=== PATIENT | female | born 1980 | race Caucasian/White ===

== ENCOUNTER 2017-08-09 01:03 | Emergency (ER) | payer BC ==
--- NOTE | 2017-08-09 01:45 | Emergency Department Record ---
History of Present Illness - General Chief complaint: Extremity Problem Stated complaint: RIGHT LEG PAIN Time Seen by Provider: 08/09/17 01:12 Source: Patient, EMS Mode of Arrival: Ambulatory Limitations: No limitations - History of Present Illness Initial comments: pt having severe back pain that radiates down r leg. no problems w bowel or bladder. pt had injections in back earlier this week. pt has mild numbness only when only when she stands on it. pt vomited 3x tonight and that made it worse. MD Complaint: Extremity pain, Other Onset/Timin -: Week(s) Location: Right, Lower Leg Severity scale (1-10): 10 Quality: Sharp, Stabbing Consistency: Constant, Getting worse - Related Data Previous Rx's Medication Instructions Recorded Diazepam [Valium] 2 mg PO TID #10 tab 08/09/17 Hydrocodone/Acetaminophen [Kinsley 1 each PO QID #7 tablet 08/09/17 5-325 Tablet] Ibuprofen [Motrin 600Mg] 600 mg PO Q6H #20 tablet 08/09/17 Allergies Allergy/AdvReac Type Severity Reaction Status Date / Time No Known Drug Allergies Allergy Unknown Verified 07/06/17 13:39 [NO KNOWN DRUG ALLERGIES] Travel Screening - Travel/Exposure Within Last 30 Days Have you traveled within the last 30 days?: No Review of Systems Reviewed: No additional complaints except as noted below Constitutional: Reports: As per HPI. Denies: Chills, Fever, Malaise, Night sweats, Weakness, Weight change Eyes: Reports: As per HPI. Denies: Eye discharge, Eye pain, Photophobia, Vision change ENT: Reports: As per HPI. Denies: Congestion, Dental pain, Ear pain, Epistaxis , Hearing loss, Throat pain Respiratory: Reports: As per HPI. Denies: Cough, Dyspnea, Hemoptysis, Stridor, Wheezes Cardiovascular: Reports: As per HPI. Denies: Arrhythmia, Chest pain, Dyspnea on exertion, Edema, Murmurs, Orthopnea, Palpitations, Paroxysmal nocturnal dyspnea, Rheumatic Fever, Syncope Endocrine: Reports: As per HPI. Denies: Fatigue, Heat or cold intolerance, Polydipsia, Polyuria Gastrointestinal: Reports: As per HPI. Denies: Abdominal pain, Constipation, Diarrhea, Hematemesis, Hematochezia, Melena, Nausea, Vomiting Genitourinary: Reports: As per HPI. Denies: Abnormal menses, Discharge, Dyspareunia, Dysuria, Frequency, Hematuria, Incontinence, Retention, Urgency Musculoskeletal: Reports: As per HPI. Denies: Arthralgia, Back pain, Gout, Joint swelling, Myalgia, Neck pain Skin: Reports: As per HPI. Denies: Bruising, Change in color, Change in hair/ nails, Lesions, Pruritus, Rash Neurological: Reports: As per HPI. Denies: Abnormal gait, Confusion, Headache, Numbness, Paresthesias, Seizure, Tingling, Tremors, Vertigo, Weakness Psychiatric: Reports: As per HPI. Denies: Anxiety, Auditory hallucinations, Depression, Homicidal thoughts, Suicidal thoughts, Visual hallucinations Hematological/Lymphatic: Reports: As per HPI. Denies: Anemia, Blood Clots, Easy bleeding, Easy bruising, Swollen glands Past Medical History - SOCIAL HISTORY Smoking Status: Never smoker Alcohol Use: None Drug Use: None - RESPIRATORY Hx Respiratory Disorders: No - CARDIOVASCULAR Hx Cardio Disorders: No Hx Chest Pain: No - NEURO Hx Neuro Disorders: No - GI Hx GI Disorders: No - Hx Genitourinary Disorders: No - ENDOCRINE Hx Endocrine Disorders: No - MUSCULOSKELETAL Hx Musculoskeletal Disorders: No Hx Back Injury: Yes - PSYCH Hx Psych Problems: Yes Hx Anxiety: Yes - HEMATOLOGY/ONCOLOGY Hx Hematology/Oncology Disorders: No Family Medical History Any Significant Family History?: Yes Hx Heart Disease: Father, Grandparents Hx HTN: Grandparents Physical Exam - General General Appearance: Alert, Oriented x3, Cooperative, Mild distress - Head Head exam: Normal inspection - Eye Eye exam: Normal appearance, PERRL, EOMI Pupils: Normal accommodation - ENT ENT exam: Normal exam, Mucous membranes moist, Normal external ear exam, Normal orophraynx Ear exam: Normal external inspection. negative: External canal tenderness Nasal Exam: Normal inspection. negative: Discharge, Sinus tenderness Mouth exam: Normal external inspection, Tongue normal Teeth exam: Normal inspection. negative: Dental caries Throat exam: Normal inspection. negative: Tonsillar erythema, Tonsillar exudate - Neck Neck exam: Normal inspection, Full ROM. negative: Tenderness - Respiratory Respiratory exam: Normal lung sounds bilaterally. negative: Respiratory distress - Cardiovascular Cardiovascular Exam: Regular rate, Normal rhythm, Normal heart sounds - GI/Abdominal GI/Abdominal exam: Soft, Normal bowel sounds. negative: Tenderness - Rectal Rectal exam: Deferred - exam: Deferred - Extremities Extremities exam: Normal inspection, Full ROM, Normal capillary refill. negative: Tenderness - Back Back exam: Reports: Muscle spasm, Paraspinal tenderness, Tenderness. Denies: Normal inspection, Full ROM, Rash noted - Neurological Neurological exam: Alert, CN II-XII intact, Normal gait, Oriented X3 - Psychiatric Psychiatric exam: Normal affect, Normal mood - Skin Skin exam: Dry, Intact, Normal color, Warm Course Vital Signs 08/09/17 01:04 Temperature 98.3 F Pulse Rate 62 Respiratory 16 Rate Blood Pressure 125/72 Pulse Ox 97 Disposition Disposition: Discharge Clinical Impression: Sciatica Qualifiers: Laterality: right Qualified Code(s): M54.31 - Sciatica, right side Disposition: Home, Self-Care Condition: (1) Good Instructions: Sciatica (ED) Additional Instructions: follow up with family doctor. return sooner if worse. no lifting more then 5 lbs for 5 days. ice to back Prescriptions: Diazepam [Valium] 2 mg PO TID #10 tab Hydrocodone/Acetaminophen [Kinsley 5-325 Tablet] 1 each PO QID #7 tablet Ibuprofen [Motrin 600Mg] 600 mg PO Q6H #20 tablet Forms: Patient Portal Access Quality - Quality Measures Quality Measures: N/A - Blood Pressure Screening Does Patient Have Any of the Following: No Blood Pressure Classification: Pre-Hypertensive BP Reading Systolic Measurement: 125 Diastolic Measurement: 72 Screening for High Blood Pressure: < Pre-Hypertensive BP, F/U Documented > [ G8950] Pre-Hypertensive Follow-up Interventions: Follow-up with rescreen every year.
[2017-08-09] MEDS ORDERED: PROMETHAZINE HCL 25 MG/ML VIAL IM ONE (01:55)
[2017-08-09] MEDS ORDERED: ORPHENADRINE CITRATE 60MG/2ML VIAL IM ONE (01:55)
[2017-08-09] MEDS ORDERED: HYDROMORPHONE HCL 1 MG/ML SYRINGE IM ONE (01:55)
[2017-08-09] MEDS ORDERED: KETOROLAC 30 MG/ML VIAL IM ONE (03:26)
--- NOTE | 2017-08-09 08:59 | CT SCAN REPORT ---
EXAM: CT SCAN LUMBAR SPINE WO CONTRAST HISTORY: SEVERE LOW BACK PAIN WITH RADIATION DOWN THE RIGHT LEG. STATUS POST LUMBAR INJECTION. TECHNIQUE: Standard CT imaging of the lumbar spine was performed in the axial plane without contrast. Additional coronal and sagittal reformatted images were also performed. COMPARISON: Lumbar spine x-rays dated July 06, 2017. ENCOUNTER: Not applicable. FINDINGS: There are six [id number] lumbar vertebral segments. There is mild disc space narrowing at the L6-S1 level. The remaining lumbar intervertebral disc spaces and vertebral body heights are maintained. Facet arthropathy is present at the L6-S1 level. There is diffuse disc bulging and a superimposed right paracentral to right posterolateral disc protrusion at the L6 -S1 level. There is probable impingement on the descending nerve root. There is no gross central canal stenosis. There is very minor disc bulging at L4-5 and L5 -6 levels with no disc herniation, central canal stenosis, or nerve root impingement. The remaining lumbar intervertebral discs are unremarkable. There are no acute osseous abnormalities. IMPRESSION: 1. SIX LUMBAR VERTEBRAL SEGMENTS. 2. DEGENERATIVE DISC DISEASE AND FACET ARTHROPATHY AT THE L6-S1 LEVEL. A SUPERIMPOSED RIGHT PARACENTRAL TO RIGHT POSTEROLATERAL DISC PROTRUSION IS PRESENT AND LIKELY IMPINGES UPON THE DESCENDING RIGHT S1 NERVE ROOT. JOB NUMBER: [id number] [facility]
== END 2017-08-09 07:21 | disposition home or self-care (01) ==
LOC: ER 01:03
DX: M51.17 Intervertebral disc disorders with radiculopathy, lumbosacral region (principal); M54.5 Low back pain; R11.11 Vomiting without nausea
CPT/HCPCS: 99283; 96372; 99284; 72131; J1885; J1170; J2360; J2550

== ENCOUNTER 2017-11-17 09:29 | Observation (INO) | payer BC ==
[2017-11-17] MEDS ORDERED: 0.9 % SODIUM CHLORIDE 1,000 ML BAG IV ONE ×2 (10:03→10:54)
[2017-11-17] MEDS ORDERED: LORAZEPAM 2 MG/ML VIAL IV ONE ×2 (10:03→10:58)
--- NOTE | 2017-11-17 10:07 | Emergency Department Record ---
Anxiety - General Chief Complaint: Anxiety Stated Complaint: ANXIETY Time Seen by Provider: 11/17/17 09:48 Source: Patient Mode of Arrival: Ambulatory Limitations: No limitations - History of Present Illness Initial Comments: The patient is here due to a 4 hour hx of dizziness, weakness, feeling shaky and lightheaded. The onset was after waking up this AM. She also is feeling very anxious and having mild R anterior pleuritic pain at times. She is very concerned that she may have a blood clot due to having out patient back surgery 2 weeks ago. There is no reported hx of leg pain, swelling, blood clots or immobility. MD Complaint: Anxiety, Shortness of breath Onset/Timin -: Hour(s) Place: Home Previous History of Same: Yes Severity: Mild Provoking factors: Other Improves With: Nothing Worsens With: Other Associated symptoms: Denies other symptoms - Related Data Home Medications: Home Medications Medication Instructions Recorded Confirmed Last Taken Ibuprofen [Motrin 600Mg] 800 mg PO Q6H 11/17/17 11/17/17 1 Day Ago ~11/16/17 Tramadol HCl [Tramadol HCl] 50 mg PO Q6HR PRN 11/17/17 11/17/17 11/16/17 Allergies/Adverse Reactions: Allergies Allergy/AdvReac Type Severity Reaction Status Date / Time No Known Drug Allergies Allergy Unknown Verified 11/17/17 09:35 [NO KNOWN DRUG ALLERGIES] Travel Screening - Travel/Exposure Within Last 30 Days Have you traveled within the last 30 days?: No - Travel/Exposure Within Last Year Have you traveled outside the [place] in the last year?: No - Additonal Travel Details Have you been exposed to anyone with a communicable illness?: No - Travel Symptoms Symptom Screening: None Review of Systems Constitutional: Denies: Chills, Fever Eyes: Denies: Eye discharge ENT: Denies: Congestion Respiratory: Denies: Cough, Dyspnea Past Medical History - SOCIAL HISTORY Smoking Status: Never smoker Alcohol Use: Occasional Drug Use: None - RESPIRATORY Hx Respiratory Disorders: No - CARDIOVASCULAR Hx Cardio Disorders: Yes Hx Chest Pain: No - NEURO Hx Neuro Disorders: No - GI Hx GI Disorders: No - Hx Genitourinary Disorders: No - ENDOCRINE Hx Endocrine Disorders: No - MUSCULOSKELETAL Hx Musculoskeletal Disorders: Yes Hx Back Injury: Yes - PSYCH Hx Psych Problems: Yes Hx Anxiety: Yes - HEMATOLOGY/ONCOLOGY Hx Hematology/Oncology Disorders: No Family Medical History Any Significant Family History?: No Hx Heart Disease: Father, Grandparents Hx HTN: Grandparents Physical Exam - General General Appearance: Alert, Oriented x3, Cooperative, No acute distress - Head Head exam: Atraumatic, Normocephalic, Normal inspection - Eye Eye exam: Normal appearance, PERRL - ENT Throat exam: Normal inspection. negative: Tonsillar erythema, Tonsillar exudate - Neck Neck exam: Normal inspection, Full ROM. negative: Tenderness - Respiratory Respiratory exam: Normal lung sounds bilaterally. negative: Respiratory distress - Cardiovascular Cardiovascular Exam: Regular rate, Normal rhythm, Normal heart sounds. negative : Diastolic murmur, Systolic murmur - GI/Abdominal GI/Abdominal exam: Soft, Normal bowel sounds. negative: Tenderness - Extremities Extremities exam: Normal inspection, Full ROM, Normal capillary refill. negative: Tenderness - Neurological Neurological exam: Alert, Normal gait. negative: Abnormal gait, Motor sensory deficit - Psychiatric Psychiatric exam: Anxious Course Vital Signs 11/17/17 09:38 Temperature 97.5 F L Pulse Rate 107 H Respiratory 20 Rate Blood Pressure 137/77 Pulse Ox 100 - Reevaluation(s) Reevaluation #1: The patient is doing a lot better at this time. She is resting comfortably and no longer is anxious and no longer having any pain or discomfort. Due to her D- dimer being mildly elevated we will be ordering a chest CT. 11/17/17 10:54 11/17/17 10:59 Reevaluation #2: The patient is doing a lot better with her anxiety and denies any Cp or SOB. I did discuss this with her and she clearly appears more comfortable. Presently she is resting comfortably but is now having persistent sinus tachycardia. We have been observing her here for over an hour and her HR is bouncing from 130- 140. Due to that fact I did recommend admitting her overnight with a Cardiology consult tomorrow. The patient does understand the plan and does agree to it. I then did discuss the case with Antonia POWELL) and she does accept the patient for admission for Dr. Velázquez. 11/17/17 13:06 Medical Decision Making - Data Complexity MDM Data: Labs Ordered and/or Reviewed, X-Ray Ordered and/or Reviewed, EKG Ordered and/or Reviewed - Lab Data Result diagrams: 11/17/17 10:10 11/17/17 10:10 - EKG Data -: EKG Interpreted by Me EKG: No Acute Changes, Unchanged From Previous - Radiology Data Radiology results: Report reviewed (CXR: Neg Chest CT: Neg for any PE or acute abnormalities.) Disposition Disposition: Admit Clinical Impression: Tachycardia Disposition: Still a Patient at [facility] Decision to Admit: Admit from ER Decision to Admit Date: 11/17/17 Decision to Admit Time: 13:10 Accepting Physician: Eber Time Discussed w/Accepting Physician: 13:10 Condition: (2) Stable Time of Disposition: 13:10 Quality - Quality Measures Quality Measures: N/A - Blood Pressure Screening View Details: Yes Does Patient Have Any of the Following: No Blood Pressure Classification: Pre-Hypertensive BP Reading Systolic Measurement: 127 Diastolic Measurement: 72 Screening for High Blood Pressure: < Pre-Hypertensive BP, F/U Documented > [ G8950] Pre-Hypertensive Follow-up Interventions: Referral to alternative/primary care provider.
[2017-11-17 10:20] LABS: HEMATOCRIT 39.1 % (35.0-47.0); HEMOGLOBIN 12.4 gm/dl (11.6-16.0); MEAN CELL VOLUME 98.2 fl (81-97); MEAN CORPUSCULAR HEMOGLOBIN 31.2 pg (27-33); MEAN CORPUSCULAR HGB CONC 31.7 g/dl (32-36); MEAN PLATELET VOLUME 10.3 fl (7.4-10.4); PLATELET COUNT 346 K/uL (130-400); RED BLOOD COUNT 3.98 M/uL (3.80-5.40); WHITE BLOOD COUNT W/O DIFF 16.3 K/uL (4.2-12.2)
[2017-11-17 10:30] LABS: BLOOD UREA NITROGEN 8 mg/dL (6-20); CREATININE 0.7 mg/dL (0.5-0.9); EST GLOMERULAR FILTRATION RATE > 60 mL/min
[2017-11-17 10:33] LABS: GLUCOSE,RANDOM 99 mg/dL (74-109)
[2017-11-17 10:35] LABS: PARTIAL THROMBOPLASTIN TIME 25.9 SECONDS (24.5-39.1); PROTHROMBIN TIME (PATIENT) 10.3 SECONDS (9.5-12.1)
[2017-11-17 10:36] LABS: CREATINE PHOSPHOKINASE 57 U/L (26-192)
[2017-11-17 10:37] LABS: CKMB < 1.0 ng/mL (<3.77)
[2017-11-17] MEDS ORDERED: POTASSIUM CHLORIDE 20 MEQ TABLET PO ONE (10:38)
[2017-11-17] MEDS ORDERED: LORAZEPAM 0.5 MG TABLET PO ONE (13:19)
[2017-11-17] MEDS ORDERED: LEVONORGESTREL IY SCH (14:29)
[2017-11-17] MEDS ORDERED: LORAZEPAM 0.5 MG TABLET PO PRN (14:29)
[2017-11-17] MEDS ORDERED: TRAMADOL HCL 50 MG TABLET PO PRN (14:29)
[2017-11-17] MEDS ORDERED: 0.9 % SODIUM CHLORIDE 1000ML 1,000 ML IV PRN (14:29)
[2017-11-17] MEDS ORDERED: IBUPROFEN 600 MG TABLET PO SCH (14:29)
[2017-11-17] MEDS ORDERED: ACETAMINOPHEN 325 MG TAB PO PRN (14:29)
[2017-11-17] MEDS ORDERED: IBUPROFEN 400 MG TABLET PO PRN (16:00)
--- NOTE | 2017-11-17 22:46 | History & Physical ---
History of Present Illness - Date of Service Date of Service for History & Physical: 11/17/17 - History of Present Illness Admitting Diagnosis: 1. Acute Sinus Tachycardia History of Present Illness: Pt. is a 37 year-old female. She presented to the ED today because she was experiencing a 4 hour hx of dizziness, weakness, feeling shaky and lightheaded. The onset was after waking up this AM. She also reported feeling very anxious and having mild right anterior chest pain at times. She was very concerned that she may have a blood clot due to having outpatient back surgery 2 weeks ago (discectomy at ). She denied hx of leg pain, swelling, blood clots or immobility. Her history includes anxiety with panic attacks, never pharmacologically managed. History also includes multiple ED visits in last 3- 4 years for similar symptoms. In the ED, her vital signs were as follows: BP 137/77, pulse 107 ,temp 97.5F , RR 20, pulse ox 100%. EKG was showed sinus tachycardia, no acute ST changes. Chest xray was negative, d dimer was slightly elevated so CT was done and was negative for any acute process. Labs revealed an elevated WBC of 16.3 and TSH of 5.3, otherwise unremarkable. 1mg of Ativan was administered and did provide relief of her symptoms, however, her heart rate remained 130-140s. Due to her sinus tachycardia, she was admitted for observation with planned cardiology consult on 11/18. 11/17/17 1600 Pt. is resting comfortably in bed. She presently denies symptoms of shortness of breath, dizziness, weakness, and lightheadedness. She denies recent illness. She does admit that she has not been drinking her normal amount of fluids lately. Discussed slightly elevated TSH with pt. and she denies any thyroid history, but states she has struggled with weight loss and cold intolerance. She states that she has recovered well from her lumbar discectomy and she is planning to return to work in 6 days part-time. She is tolerating food and liquids. 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 Will continue ativan PO for anxiety. Travel Screening - Travel/Exposure Within Last 30 Days Have you traveled within the last 30 days?: No - Travel/Exposure Within Last Year Have you traveled outside the [place] in the last year?: No - Additonal Travel Details Have you been exposed to anyone with a communicable illness?: No - Travel Symptoms Symptom Screening: None Review of Systems Constitutional: Reports: Weakness. Denies: Chills, Fever Eyes: Denies: Eye discharge ENT: Denies: Congestion Respiratory: Denies: Cough, Dyspnea Cardiovascular: Reports: Chest pain Endocrine: Reports: Heat or cold intolerance Gastrointestinal: Reports: As per HPI. Denies: Abdominal pain, Constipation, Diarrhea, Hematemesis, Hematochezia, Melena, Nausea, Vomiting Genitourinary: Reports: As per HPI. Denies: Abnormal menses, Discharge, Dyspareunia, Dysuria, Frequency, Hematuria, Incontinence, Retention, Urgency Musculoskeletal: Reports: As per HPI. Denies: Arthralgia, Back pain, Gout, Joint swelling, Myalgia, Neck pain Skin: Reports: As per HPI. Denies: Bruising, Change in color, Change in hair/ nails, Lesions, Pruritus, Rash Neurological: Reports: As per HPI, Weakness. Denies: Abnormal gait, Confusion, Headache, Numbness, Paresthesias, Seizure, Tingling, Tremors, Vertigo Psychiatric: Reports: Anxiety Hematological/Lymphatic: Reports: As per HPI. Denies: Anemia, Blood Clots, Easy bleeding, Easy bruising, Swollen glands Past Medical History - SOCIAL HISTORY Smoking Status: Never smoker Alcohol Use: Occasional Drug Use: None - RESPIRATORY Hx Respiratory Disorders: No - CARDIOVASCULAR Hx Cardio Disorders: Yes Hx Chest Pain: No - NEURO Hx Neuro Disorders: No - GI Hx GI Disorders: No - Hx Genitourinary Disorders: No - ENDOCRINE Hx Endocrine Disorders: No - MUSCULOSKELETAL Hx Musculoskeletal Disorders: Yes Hx Back Injury: Yes - PSYCH Hx Psych Problems: Yes Hx Anxiety: Yes - HEMATOLOGY/ONCOLOGY Hx Hematology/Oncology Disorders: No Family Medical History Any Significant Family History?: No Hx Heart Disease: Father, Grandparents Hx HTN: Grandparents H&P Meds/Allergies - Allergies Allergies: Allergies Allergy/AdvReac Type Severity Reaction Status Date / Time No Known Drug Allergies Allergy Unknown Verified 11/17/17 09:35 [NO KNOWN DRUG ALLERGIES] - Home Medications Home Medications Medication Instructions Recorded Confirmed Last Taken Ibuprofen [Motrin 600Mg] 800 mg PO Q6H 11/17/17 11/17/17 1 Day Ago ~11/16/17 Tramadol HCl [Tramadol HCl] 50 mg PO Q6HR PRN 11/17/17 11/17/17 11/16/17 - Active Medications Active Medications: Current Medications Acetaminophen (Tylenol 325mg) 650 mg PO Q4H PRN PRN Reason: PAIN/TEMP Ibuprofen (Motrin 400mg) 800 mg PO Q8H PRN PRN Reason: Pain - General Lorazepam (Ativan) 0.5 mg PO TID PRN PRN Reason: ANXIETY Tramadol HCl (Ultram) 50 mg PO Q6HR PRN PRN Reason: Pain - General Physical Exam - Vital Signs Vital Signs: Vital Signs - Last 24 Hrs Temp Pulse Pulse Resp BP BP Pulse Ox 11/17/17 20:29 97.6 F 100 H 18 123/71 97 11/17/17 16:29 100.0 F H 112 H 20 115/70 96 11/17/17 14:29 99.2 F 122 H 18 121/71 100 11/17/17 14:25 118 H 16 127/72 99 11/17/17 14:20 16 - General General Appearance: Alert, Oriented x3, Cooperative, No acute distress Limitations: No limitations - Head Head exam: Atraumatic, Normocephalic, Normal inspection - Eye Eye exam: Normal appearance, PERRL - ENT Throat exam: Normal inspection. negative: Tonsillar erythema, Tonsillar exudate - Neck Neck exam: Normal inspection, Full ROM. negative: Tenderness - Respiratory Respiratory exam: Normal lung sounds bilaterally. negative: Respiratory distress - Cardiovascular Cardiovascular Exam: Normal rhythm, Normal heart sounds, Tachycardia. negative : Diastolic murmur, Systolic murmur - GI/Abdominal GI/Abdominal exam: Soft, Normal bowel sounds. negative: Tenderness - Rectal Rectal exam: Deferred - exam: Deferred - Extremities Extremities exam: Normal inspection, Full ROM, Normal capillary refill. negative: Tenderness - Back Back exam: Reports: Normal inspection, Full ROM. Denies: Muscle spasm, Rash noted, Tenderness - Neurological Neurological exam: Alert, Normal gait. negative: Abnormal gait, Motor sensory deficit - Psychiatric Psychiatric exam: Normal affect, Normal mood - Skin Skin exam: Other (healing surgical incision on midline lower back, approximately 4cm) Results - Labs Result Diagrams: 11/17/17 10:10 11/17/17 10:10 Labs Last 24 Hours: Laboratory Results - last 24 hr 11/17/17 11/17/17 17:19 17:19 CK-MB (CK-2) < 1.0 Troponin T < 0.010 - Imaging and Cardiology Chest x-ray Status: Pending, Image reviewed CT scan - chest Status: Pending VTE H&P Assessment - Risk for VTE Risk for VTE: Yes Risk Level: Low Risk Assessment Date: 11/17/17 Risk Assessment Time: 22:53 VTE Orders Placed or Will Be Placed: Yes Plan - Detailed Diagnosis and Plan (1) Tachycardia Current Visit: Yes Status: Acute Base Code: R00.0 - TACHYCARDIA, UNSPECIFIED Comment: 11/17/17: -Pt. remains sinus tachy on tele- 120s (was 130s-140s in ED) -May be secondary to underlying infection- low grade fever this evening and slighly elevated WBC, will continue to monitor -Cardiology consult placed for 11/18 -will consider lopressor initiation if tachycardia persists (2) Anxiety Current Visit: Yes Status: Acute Base Code: F41.9 - ANXIETY DISORDER, UNSPECIFIED Comment: 11/17/17: -hx of multiple ED visits for anxiety and panic attacks with negative cardiac work ups -will continue 0.5mg ativan tid prn anxiety -recommended pt. to f/u with pcp regarding daily anti-anxiety medication (3) At risk for deep venous thrombosis Current Visit: Yes Status: Acute Base Code: Z91.89 - OTH PERSONAL RISK FACTORS, NOT ELSEWHERE CLASSIFIED Comment: 11/17/17: -Pt. 2 weeks post-op lumbar discectomy -Mobility not presently impaired, pt. has returned to normal level of activity -Will order lovenox if pt. admitted longer than 24 hours (4) Full code status Current Visit: Yes Status: Acute Base Code: Z78.9 - OTHER SPECIFIED HEALTH STATUS Comment: 11/17/17: Pt. is full code
[2017-11-18 07:06] LABS: BASO % 0.3 % (0-6); EOS % 1.8 % (0-6); GRAN % 62.3 % (47-80); HEMATOCRIT 37.2 % (35.0-47.0); HEMOGLOBIN 11.4 gm/dl (11.6-16.0); LYMPH % 28.2 % (16-45); MEAN CELL VOLUME 100.5 fl (81-97); MEAN CORPUSCULAR HEMOGLOBIN 30.8 pg (27-33); MEAN CORPUSCULAR HGB CONC 30.6 g/dl (32-36); MEAN PLATELET VOLUME 10.8 fl (7.4-10.4); MONO % 7.4 % (0-9); PLATELET COUNT 296 K/uL (130-400); RED CELL DISTRIBUTION WIDTH 13.4 % (11.5-14.5); WHITE BLOOD COUNT W/O DIFF 7.3 K/uL (4.2-12.2)
[2017-11-18 07:30] LABS: ALB/GLOB RATIO 1.8 (1.1-1.8); ALBUMIN 3.9 g/dL (4.0-5.0); ALKALINE PHOSPHATASE 49 U/L (35-104); ALT/SGPT 7 U/L (<33); AST/SGOT 12 U/L (10.0-35.0); BLOOD UREA NITROGEN 6 mg/dL (6-20); CREATININE 0.6 mg/dL (0.5-0.9); EST GLOMERULAR FILTRATION RATE > 60 mL/min; GLUCOSE,RANDOM 84 mg/dL (74-109); TOTAL PROTEIN 6.1 g/dL (6.6-8.7)
--- NOTE | 2017-11-18 07:33 | RADIOLOGY REPORT ---
EXAM: CHEST, TWO VIEWS HISTORY: DIFFICULTY IN BREATHING, POSSIBLE ANXIETY ATTACK. TECHNIQUE: PA and lateral views of the chest were obtained. Comparison: Two view chest 10/09/15. FINDINGS: The heart size is within normal limits. The lungs appear expanded with no acute infiltrate seen. No pleural effusion or pneumothorax evident. Very minor mid thoracic curve to the right and thoracolumbar curve to the left. IMPRESSION: 1. VERY MINOR THORACOLUMBAR CURVES. 2. THE CHEST APPEARS OTHERWISE NEGATIVE WITH NO ACUTE INFILTRATE IDENTIFIED. JOB [facility]BER: [id number] [facility]
--- NOTE | 2017-11-18 07:37 | CT ANGIOGRAM REPORT ---
EXAM: CTA OF THE CHEST FOR PE WITH POST PROCESSING HISTORY: PLEURITIC CHEST PAIN, DIFFICULTY IN BREATHING, HAD LUMBAR SURGERY TWO WEEKS AGO. D-DIMER ELEVATED. POSSIBLE PE. TECHNIQUE: CTA of the chest was performed following the intravenous administration of 70 ml of Omnipaque 350 as the IV contrast. Post processing on an independent workstation was performed with multiple 3D MIP series obtained. Comparison: No prior chest CT. Comparison is made with the two view chest x- ray from earlier this morning on 11/17/17. FINDINGS: No definite PE identified. No thoracic aortic aneurysm or dissection is seen. No pleural or pericardial effusion evident. The heart size is within normal limits. No pneumothorax is evident. No acute infiltrate identified. IMPRESSION: EMERGENCY CTA OF THE CHEST APPEARS ESSENTIALLY NEGATIVE WITH NO PE IDENTIFIED. JOB [facility]BER: [id number] [facility]
--- NOTE | 2017-11-18 11:13 | Discharge Summary ---
Providers Discharge Summary Date: 11/18/17 Date of admission: 11/17/17 14:11 Expected Date of Discharge: 11/18/17 Attending physician: AISLINN LUTHER Primary care physician: LENO BAI M.D. Consults: Outpatient cardiology- [facility]- appt. scheduled Thursday11/20/17 Physical Exam - Vital Signs Vital Signs: Vital Signs - Last 24 Hrs Temp Pulse Pulse Resp BP BP Pulse Ox 11/18/17 09:00 18 11/18/17 08:00 99.3 F 92 H 18 123/78 95 11/18/17 04:00 98.7 F 82 18 117/65 96 11/18/17 00:00 75 18 11/17/17 20:29 97.6 F 100 H 18 123/71 97 11/17/17 16:29 100.0 F H 112 H 20 115/70 96 11/17/17 14:29 99.2 F 122 H 18 121/71 100 11/17/17 14:25 118 H 16 127/72 99 11/17/17 14:20 16 - General General Appearance: Alert, Oriented x3, Cooperative, No acute distress Limitations: No limitations - Head Head exam: Atraumatic, Normocephalic, Normal inspection - Eye Eye exam: Normal appearance, PERRL - ENT Throat exam: Normal inspection. negative: Tonsillar erythema, Tonsillar exudate - Neck Neck exam: Normal inspection, Full ROM. negative: Tenderness - Respiratory Respiratory exam: Normal lung sounds bilaterally. negative: Respiratory distress - Cardiovascular Cardiovascular Exam: Normal rhythm, Normal heart sounds, Tachycardia. negative : Diastolic murmur, Systolic murmur - GI/Abdominal GI/Abdominal exam: Soft, Normal bowel sounds. negative: Tenderness - Rectal Rectal exam: Deferred - exam: Deferred - Extremities Extremities exam: Normal inspection, Full ROM, Normal capillary refill. negative: Tenderness - Back Back exam: Reports: Normal inspection, Full ROM. Denies: Muscle spasm, Rash noted, Tenderness - Neurological Neurological exam: Alert, Normal gait. negative: Abnormal gait, Motor sensory deficit - Psychiatric Psychiatric exam: Normal affect, Normal mood - Skin Skin exam: Other (healing surgical incision on midline lower back, approximately 4cm) Hospitalization - Hospitalization Admission Diagnosis: 1. Acute Sinus Tachycardia - Problem List/Discharge Diagnosis (1) Tachycardia Current Visit: Yes Status: Acute Base Code: R00.0 - TACHYCARDIA, UNSPECIFIED Comment: 11/17/17: -Pt. remains sinus tachy on tele- 120s (was 130s-140s in ED) -May be secondary to underlying infection- low grade fever this evening and slighly elevated WBC, will continue to monitor -Cardiology consult placed for 11/18 -will consider lopressor initiation if tachycardia persists (2) Anxiety Current Visit: Yes Status: Acute Base Code: F41.9 - ANXIETY DISORDER, UNSPECIFIED Comment: 11/17/17: -hx of multiple ED visits for anxiety and panic attacks with negative cardiac work ups -will continue 0.5mg ativan tid prn anxiety -recommended pt. to f/u with pcp regarding daily anti-anxiety medication (3) At risk for deep venous thrombosis Current Visit: Yes Status: Acute Base Code: Z91.89 - OTH PERSONAL RISK FACTORS, NOT ELSEWHERE CLASSIFIED Comment: 11/17/17: -Pt. 2 weeks post-op lumbar discectomy -Mobility not presently impaired, pt. has returned to normal level of activity -Will order lovenox if pt. admitted longer than 24 hours (4) Full code status Current Visit: Yes Status: Acute Base Code: Z78.9 - OTHER SPECIFIED HEALTH STATUS Comment: 11/17/17: Pt. is full code - Hospitalization Course Disposition: Home, Self-Care Hospital Course: Pt. is a 37 year-old female. She presented to the ED today because she was experiencing a 4 hour hx of dizziness, weakness, feeling shaky and lightheaded. The onset was after waking up this AM. She also reported feeling very anxious and having mild right anterior chest pain at times. She was very concerned that she may have a blood clot due to having outpatient back surgery 2 weeks ago (discectomy at ). She denied hx of leg pain, swelling, blood clots or immobility. Her history includes anxiety with panic attacks, never pharmacologically managed. History also includes multiple ED visits in last 3- 4 years for similar symptoms. In the ED, her vital signs were as follows: BP 137/77, pulse 107 ,temp 97.5F , RR 20, pulse ox 100%. EKG was showed sinus tachycardia, no acute ST changes. Chest xray was negative, d dimer was slightly elevated so CT was done and was negative for any acute process. Labs revealed an elevated WBC of 16.3 and TSH of 5.3, otherwise unremarkable. 1mg of Ativan was administered and did provide relief of her symptoms, however, her heart rate remained 130-140s. Due to her sinus tachycardia, she was admitted for observation with planned cardiology consult on 11/18. 11/17/17 1600 Pt. is resting comfortably in bed. She presently denies symptoms of shortness of breath, dizziness, weakness, and lightheadedness. She denies recent illness. She does admit that she has not been drinking her normal amount of fluids lately. Discussed slightly elevated TSH with pt. and she denies any thyroid history, but states she has struggled with weight loss and cold intolerance. She states that she has recovered well from her lumbar discectomy and she is planning to return to work in 6 days part-time. She is tolerating food and liquids. Plan for continuous library monitor, monitor vital signs, monitor cardiac enzymes, check am CBC and CMP, and consult cardiology for evaluation of sinus tachycardia. Will continue ativan PO for anxiety. 11/18/17 0900 Pt. is resting in bed, she continues to deny symptoms of shortness of breath , dizziness, weakness, and lightheadedness. She states that her feeling of anxiety is now resolved. She has tolerated fluids well throughout the night and her labs have returned to normal- WBC now 7.3. She has not required Ativan since the ED. She has remained in NSR on tele, heart rate decreased to 80s- 90s. Spoke to pt. regarding cardiology consult and recommended to f/u outpatient, plan to d/c home today. PCP: Dr. Bai Cardiology: [facility] (appt 11/20/17) Abnormal Labs: Abnormal Lab Results 11/18/17 11/18/17 Range/Units 06:15 06:15 RBC 3.70 L (3.80-5.40) M/uL Hgb 11.4 L (11.6-16.0) gm/dl MCV 100.5 H (81-97) fl MCHC 30.6 L (32-36) g/dl MPV 10.8 H (7.4-10.4) fl Total Protein 6.1 L (6.6-8.7) g/dL Albumin 3.9 L (4.0-5.0) g/dL Condition at Discharge: (2) Stable VTE Discharge VTE Reason For No Overlap Therapy: Not Indicated (Mobility not imparied, d/c home today) Discharge Medications - Discharge Medications Prescriptions: Lorazepam [Ativan] 0.5 mg PO TID PRN #6 tablet PRN Reason: Anxiety Home Medications: Ambulatory Orders Levonorgestrel [Mirena] 1 each IY ASDIR each 05/19/16 [Last Taken Unknown] Ibuprofen [Motrin 600Mg] 800 mg PO Q6H 11/17/17 [Last Taken 1 Day Ago ~11/16/17] Tramadol HCl 50 mg PO Q6HR PRN 11/17/17 [Last Taken 11/16/17] Lorazepam [Ativan] 0.5 mg PO TID PRN #6 tablet 11/18/17 [Last Taken Unknown] Discharge Plan - Discharge Instructions Activity at Discharge: Resume Usual Activities As Tolerated Diet at Discharge: Regular Diet Additional Instructions: Follow with [facility] cardiology regarding elevated heart rate- appt. 11/20/17 Follow up with your PCP within 5-7 days, address elevated TSH and anxiety concerns Return to the ED if you experience any chest pain, severe headache, confusion, weakness Quality Measures - Quality Measures Quality Measures: Documentation of Current Medications in Medical Record, Screening for High Blood Pressure and F/U Documented - Current Medications Quality Measure: Measure #130: Documentation of Current Medications Documentation of Current Medications: <Current Medications Documented/Reviewed> [G8427] - Blood Pressure Screening Quality Measure: Screening for High Blood Pressure and Follow-Up Documented Does Patient Have Any of the Following: No Blood Pressure Classification: Pre-Hypertensive BP Reading Systolic Measurement: 127 Diastolic Measurement: 72 Screening for High Blood Pressure: < Pre-Hypertensive BP, F/U Documented > [ [id number]] Pre-Hypertensive Follow-up Interventions: Follow-up with rescreen every year. - Elder Abuse Suspicion Index EASI Reference Information: Christian ROBERT, Piero C, Briana D, Rossana Machuca.Development and validation of a tool to assist physicians identification of elder abuse: The Elder Abuse Suspicion Index (EASI ). Journal of Elder Abuse and Neglect, 2008; 20 (3): 276-300.
== END 2017-11-18 12:30 | disposition home or self-care (01) ==
LOC: ER 09:29 → MEDSURG 14:11
PROVIDERS: ADMIT Internal Medicine; ATTEND Internal Medicine
DX: R00.0 Tachycardia, unspecified (principal); R42 Dizziness and giddiness; R53.1 Weakness
CPT/HCPCS: 99285 ×2; 96376; 96374; 96361; 82550; 85025; 85730; 85610; 82553 ×2; 80048; 80053; 84443; 82652; 84484 ×2; 85379; 85027; 71046; 71275; 93005 ×2; 93010; G0378 ×2; Q9967; J2060; 99217; 99220; J7030